=== PATIENT | female | born 1970 | race Caucasian/White ===

== ENCOUNTER 2021-03-09 01:20 | Inpatient (IN) ==
[2021-03-09 01:38] LABS: Basophils % 0.3 % (0.0-0.8); Eosinophils # 0.2 10*3/uL (0.0-0.87); Eosinophils % 1.6 % (0.00-10.9); Hematocrit 42.3 VOL% (35.7-47.0); Hemoglobin 14.6 GM/DL (12.0-16.0); Immature Granulocytes % 0.5 %; Immature Granulocytes Absolute 0.05 #; Lymphocytes # 2.5 10*3/uL (1.4-4.0); Lymphocytes % 22.9 % (21.3-54.2); Mean Corpuscular HGB Conc 34.5 GM/DL (32-36); Mean Corpuscular Volume 88.1 FL (87-102); Mean Platelet Volume 11.2 FL (9.6-12.0); Monocytes % 7.7 % (1.7-12.7); Platelet Count 196 T/CUMM (130-400)
[2021-03-09 01:58] LABS: Albumin 3.9 G/DL (3.4-5.0); Bilirubin,Total 0.5 MG/DL (0.2-1.0); Calcium 8.8 MG/DL (8.5-10.1); Osmolality,Calculated 277.7 MOS/KG (273-304); Potassium 3.5 MMOL/L (3.5-5.1); Total Protein 7.3 G/DL (6.4-8.2)
[2021-03-09] MEDS ORDERED: ASPIRIN 325 MG TABLET PO STA (02:08)
[2021-03-09] MEDS ORDERED: NITROGLYCERIN SL 0.4 MG TABLET SL STA ×2 (02:08→03:32)
[2021-03-09] MEDS ORDERED: ALBUTEROL/IPRATROPIUM 3 ML NEB RESP TX STA (02:18)
[2021-03-09] MEDS ORDERED: ONDANSETRON 4 MG/2 ML VIAL IV ONE (02:18)
[2021-03-09] MEDS ORDERED: ENOXAPARIN 30 MG/0.3 ML SYRINGE SUBCUT STA (02:18)
[2021-03-09] MEDS ORDERED: MORPHINE 4 MG/1 ML VIAL IV STA (02:18)
[2021-03-09] MEDS ORDERED: methylPREDNISolone SOD SUC 125 MG/2 ML VIAL IV STA (02:18)
[2021-03-09] MEDS ORDERED: ENOXAPARIN 100 MG/ML SYRINGE SUBCUT ONE (02:19)
[2021-03-09] MEDS ORDERED: DEXTROSE 50% 25 GM/50 ML VIAL IV PRN (02:24)
[2021-03-09] MEDS ORDERED: GLUCAGON 1 MG VIAL IM PRN (02:24)
[2021-03-09] MEDS ORDERED: ALBUTEROL/IPRATROPIUM 3 ML NEB RESP TX PRN (02:29)
[2021-03-09] MEDS ORDERED: CLORAZEPATE 7.5 MG TABLET PO STA (03:34)
[2021-03-09 06:38] LABS: Risk Ratio 3.56
[2021-03-09] MEDS: NITROGLYCERIN SL 0.4 MG TABLET SL PRN (07:25)
[2021-03-09] MEDS: PANTOPRAZOLE 40 MG TABLET PO SCH (09:04)
[2021-03-09] MEDS: NICOTINE 21 MG/24 HR PATCH TRANSDERM SCH (09:04)
[2021-03-09] MEDS: ASPIRIN CHEW 81 MG TABLET PO SCH (09:06)
[2021-03-09] MEDS ORDERED: DIAZEPAM 5 MG TABLET PO ONE (09:38)
[2021-03-09] MEDS ORDERED: diphenhydrAMINE CAP 50 MG CAPSULE PO ONE (09:38)
[2021-03-09] MEDS ORDERED: HEPARIN/NACL 0.9% 2 UNITS/ML 0 UNIT/0 ML BAG IV ONE (10:25)
[2021-03-09] MEDS ORDERED: LIDOCAINE 1% 20 ML VIAL ONE (10:25)
[2021-03-09] MEDS: SODIUM CHLORIDE 0.45% 1,000 ML IV SCH ×2 (10:28→23:20)
[2021-03-09] MEDS: TICAGRELOR 90 MG TABLET PO SCH ×2 (11:07→21:11)
[2021-03-09] MEDS ORDERED: VERAPAMIL 5 MG/2 ML VIAL ONE (11:26)
[2021-03-09] MEDS ORDERED: NITROGLYCERIN DRIP 50 MG/250 ML BOTTLE IV ONE (11:26)
[2021-03-09] MEDS ORDERED: MIDAZOLAM 2 MG/2 ML VIAL ONE (11:44)
[2021-03-09] MEDS ORDERED: fentaNYL 100 MCG/2 ML VIAL ONE (11:44)
[2021-03-09] MEDS ORDERED: HEPARIN 5,000 UNIT/1 ML VIAL ONE (12:00)
[2021-03-09] MEDS ORDERED: ENOXAPARIN 100 MG/ML SYRINGE SUBCUT SCH (14:00)
[2021-03-09] MEDS: MORPHINE 4 MG/1 ML VIAL IV PRN (14:35)
[2021-03-09] MEDS: ONDANSETRON 4 MG/2 ML VIAL IV PRN ×2 (17:39→21:36)
[2021-03-09] MEDS ORDERED: METOPROLOL TARTRATE 50 MG TABLET PO SCH (21:00)
[2021-03-09] MEDS ORDERED: SIMVASTATIN 40 MG TABLET PO SCH (21:00)
[2021-03-09] MEDS: ROSUVASTATIN 20 MG TABLET PO SCH (21:11)
[2021-03-09] MEDS: CLORAZEPATE 7.5 MG TABLET PO PRN (23:56)
[2021-03-10] MEDS: NITROGLYCERIN SL 0.4 MG TABLET SL PRN (00:10)
[2021-03-10] MEDS: MORPHINE 4 MG/1 ML VIAL IV PRN ×2 (00:45→03:53)
[2021-03-10 05:09] LABS: Basophils % 0.1 % (0.0-0.8); Eosinophils % 0.1 % (0.00-10.9); Hemoglobin 14.4 GM/DL (12.0-16.0); Immature Granulocytes Absolute 0.24 #; Lymphocytes # 2.7 10*3/uL (1.4-4.0); Lymphocytes % 11.1 % (21.3-54.2); Mean Corpuscular HGB Conc 34.3 GM/DL (32-36); Mean Corpuscular Volume 88.8 FL (87-102); Mean Platelet Volume 11.8 FL (9.6-12.0); Monocytes % 8.2 % (1.7-12.7); Neutrophils % 79.5 % (38.7-73.9); Platelet Count 222 T/CUMM (130-400); Red Blood Count 4.73 MC/CUMM (3.8-5.5); Red Cell Distribution Width 13.3 % (9.3-17.3)
[2021-03-10 05:14] LABS: Calcium 9.4 MG/DL (8.5-10.1); Osmolality,Calculated 275.1 MOS/KG (273-304); Potassium 3.8 MMOL/L (3.5-5.1)
[2021-03-10 05:26] LABS: Hypochromasia Slight; Microcytosis 1+; Platelet Estimate Normal
[2021-03-10] MEDS: ONDANSETRON 4 MG/2 ML VIAL IV PRN (06:51)
[2021-03-10] MEDS: KETOROLAC 30 MG/1 ML VIAL IV SCH ×3 (06:56→18:31)
[2021-03-10] MEDS: THIAMINE 200 MG/2 ML VIAL IV SCH (09:34)
[2021-03-10] MEDS: NICOTINE 21 MG/24 HR PATCH TRANSDERM SCH (09:41)
[2021-03-10] MEDS: ASPIRIN CHEW 81 MG TABLET PO SCH (09:44)
[2021-03-10] MEDS: TICAGRELOR 90 MG TABLET PO SCH ×2 (09:44→20:47)
[2021-03-10] MEDS: MULTIVITAMIN (CENTRUM) TABLET PO SCH (09:44)
[2021-03-10] MEDS: PANTOPRAZOLE 40 MG TABLET PO SCH (09:45)
[2021-03-10] MEDS: METOPROLOL TARTRATE 100 MG TABLET PO SCH ×2 (09:45→20:47)
[2021-03-10] MEDS: FOLIC ACID 1 MG TABLET PO SCH (09:47)
[2021-03-10] MEDS: SODIUM CHLORIDE 0.45% 1,000 ML IV SCH (09:48)
[2021-03-10] MEDS: ROSUVASTATIN 20 MG TABLET PO SCH (20:47)
[2021-03-11] MEDS: KETOROLAC 30 MG/1 ML VIAL IV SCH
[2021-03-11] MEDS: CLORAZEPATE 7.5 MG TABLET PO PRN
[2021-03-11 05:05] LABS: Amorphous Crystals,Urine Occasional /HPF (Few); Bacteria,Urine Occasional /HPF (Few); Bilirubin,Urine Negative (Negative); Blood, Urine Negative (Negative); Glucose,Urine (UA) Negative (Negative); Hyaline Casts,Urine 22 /LPF (0-3); Ketones,Urine Negative (Negative); Mucus,Urine Occasional /LPF (Occasional); Nitrite,Urine Negative (Negative); Protein,Urine 30 MG/DL; RBC,Urine 2 /HPF (0-4); Squamous Epithelial Cell,Urine Few /HPF (0-10); Urine Appearance Slightly Hazy (Clear); Urine Color Amber (Yellow); Urine Specific Gravity 1.034 (1.001-1.035)
[2021-03-11 05:10] LABS: Basophils # 0.1 10*3/uL (0.0-0.2); Basophils % 0.2 % (0.0-0.8); Eosinophils % 0.1 % (0.00-10.9); Hematocrit 40.5 VOL% (35.7-47.0); Immature Granulocytes % 1.2 %; Immature Granulocytes Absolute 0.27 #; Lymphocytes % 13.5 % (21.3-54.2); Mean Corpuscular HGB Conc 34.6 GM/DL (32-36); Mean Corpuscular Volume 89.2 FL (87-102); Mean Platelet Volume 11.7 FL (9.6-12.0); Monocytes % 14.3 % (1.7-12.7); Neutrophils % 70.7 % (38.7-73.9); Platelet Count 199 T/CUMM (130-400); Red Blood Count 4.54 MC/CUMM (3.8-5.5); Red Cell Distribution Width 13.4 % (9.3-17.3); White Blood Count 22.5 T/CUMM (4-12)
[2021-03-11 05:34] LABS: Calcium 9.2 MG/DL (8.5-10.1); Lymphocytes 14 % (20-55); Osmolality,Calculated 274.4 MOS/KG (273-304); Platelet Estimate Adequate; Segmented Neutrophils 73 % (50-85); Total Cells Counted 100
[2021-03-11 05:35] LABS: Hypochromasia Slight; Microcytosis Slight
[2021-03-11] MEDS ORDERED: LIDOCAINE 1% 20 ML VIAL ONE (07:02)
[2021-03-11] MEDS: METOPROLOL TARTRATE 100 MG TABLET PO SCH ×3 (07:07→21:28)
[2021-03-11] MEDS: MULTIVITAMIN (CENTRUM) TABLET PO SCH ×2 (07:07→08:37)
[2021-03-11] MEDS: FOLIC ACID 1 MG TABLET PO SCH ×2 (07:07→08:38)
[2021-03-11] MEDS: PANTOPRAZOLE 40 MG TABLET PO SCH ×2 (07:08→08:38)
[2021-03-11] MEDS: TICAGRELOR 90 MG TABLET PO SCH ×3 (07:08→21:27)
[2021-03-11] MEDS: ASPIRIN CHEW 81 MG TABLET PO SCH ×2 (07:09→08:37)
[2021-03-11] MEDS: THIAMINE 200 MG/2 ML VIAL IV SCH ×2 (07:12→08:38)
[2021-03-11] MEDS: SODIUM CHLORIDE 0.9% 1,000 ML IV SCH ×2 (07:40→18:24)
[2021-03-11] MEDS ORDERED: diphenhydrAMINE CAP 50 MG CAPSULE PO ONE (08:00)
[2021-03-11] MEDS ORDERED: diphenhydrAMINE CAP 25 MG CAPSULE PO ONE (08:00)
[2021-03-11] MEDS ORDERED: DIAZEPAM 5 MG TABLET PO ONE ×2 (08:00)
[2021-03-11] MEDS ORDERED: fentaNYL 100 MCG/2 ML VIAL ONE (08:22)
[2021-03-11] MEDS ORDERED: MIDAZOLAM 2 MG/2 ML VIAL ONE (08:22)
[2021-03-11] MEDS ORDERED: ENOXAPARIN 30 MG/0.3 ML SYRINGE ONE (08:35)
[2021-03-11] MEDS ORDERED: TICAGRELOR 90 MG TABLET ONE (09:03)
[2021-03-11] MEDS: LEVOFLOXACIN INJ 750 MG/150 ML PREMIX IV SCH (14:56)
[2021-03-11] MEDS: NICOTINE 14 MG/24 HR PATCH TRANSDERM SCH (14:56)
[2021-03-11] MEDS: NICOTINE 21 MG/24 HR PATCH TRANSDERM SCH (14:57)
[2021-03-11] MEDS: ROSUVASTATIN 20 MG TABLET PO SCH (21:27)
[2021-03-12 04:32] LABS: Basophils % 0.2 % (0.0-0.8); Eosinophils % 0.2 % (0.00-10.9); Hematocrit 33.2 VOL% (35.7-47.0); Hemoglobin 11.1 GM/DL (12.0-16.0); Immature Granulocytes % 0.6 %; Immature Granulocytes Absolute 0.07 #; Lymphocytes # 1.5 10*3/uL (1.4-4.0); Lymphocytes % 13.2 % (21.3-54.2); Mean Corpuscular HGB Conc 33.4 GM/DL (32-36); Mean Corpuscular Volume 91.5 FL (87-102); Mean Platelet Volume 11.9 FL (9.6-12.0); Monocytes % 13.6 % (1.7-12.7); Neutrophils % 72.2 % (38.7-73.9); Platelet Count 151 T/CUMM (130-400); Red Blood Count 3.63 MC/CUMM (3.8-5.5); Red Cell Distribution Width 13.2 % (9.3-17.3); White Blood Count 11.6 T/CUMM (4-12)
[2021-03-12 05:02] LABS: Calcium 8.7 MG/DL (8.5-10.1); Potassium 4.1 MMOL/L (3.5-5.1)
[2021-03-12 05:06] LABS: Blood Urea Nitrogen 22 MG/DL (7-18); Calcium 8.7 MG/DL (8.5-10.1); Carbon Dioxide 27 MMOL/L (21-32); Estimated Glom Filtration Rate 92 ML/MIN; Glucose 96 MG/DL (74-106); Osmolality,Calculated 277.7 MOS/KG (273-304); Potassium 4.1 MMOL/L (3.5-5.1); Sodium 138 MMOL/L (136-145)
[2021-03-12] MEDS: SODIUM CHLORIDE 0.9% 1,000 ML IV SCH ×2 (07:34→07:45)
[2021-03-12] MEDS: THIAMINE 200 MG/2 ML VIAL IV SCH (08:35)
[2021-03-12] MEDS: TICAGRELOR 90 MG TABLET PO SCH ×2 (08:35→20:40)
[2021-03-12] MEDS: ASPIRIN CHEW 81 MG TABLET PO SCH (08:35)
[2021-03-12] MEDS: MULTIVITAMIN (CENTRUM) TABLET PO SCH (08:35)
[2021-03-12] MEDS: FOLIC ACID 1 MG TABLET PO SCH (08:35)
[2021-03-12] MEDS: PANTOPRAZOLE 40 MG TABLET PO SCH (08:35)
[2021-03-12] MEDS: NICOTINE 14 MG/24 HR PATCH TRANSDERM SCH (08:36)
[2021-03-12] MEDS: LEVOFLOXACIN INJ 750 MG/150 ML PREMIX IV SCH (08:42)
[2021-03-12] MEDS ORDERED: AMIODARONE INJ 150 MG in DEXTROSE 5% 100 ML IV ONE (08:46)
[2021-03-12] MEDS: METOPROLOL TARTRATE 100 MG TABLET PO SCH ×2 (08:50→20:40)
[2021-03-12] MEDS ORDERED: AMIODARONE INJ 450 MG in DEXTROSE 5% 241 ML IV SCH ×3 (09:00→15:00)
[2021-03-12] MEDS: RIVAROXABAN 20 MG TABLET PO SCH (11:33)
[2021-03-12] MEDS: ASCORBIC ACID 500 MG TABLET PO SCH ×2 (11:33→20:40)
[2021-03-12] MEDS: AMIODARONE INJ 450 MG in DEXTROSE 5% 241 ML IV SCH (17:00)
[2021-03-12] MEDS: ROSUVASTATIN 20 MG TABLET PO SCH (20:40)
[2021-03-13 05:40] LABS: Basophils % 0.2 % (0.0-0.8); Eosinophils # 0.1 10*3/uL (0.0-0.87); Eosinophils % 1.2 % (0.00-10.9); Hematocrit 33.8 VOL% (35.7-47.0); Hemoglobin 11.4 GM/DL (12.0-16.0); Immature Granulocytes % 0.5 %; Immature Granulocytes Absolute 0.05 #; Lymphocytes # 1.7 10*3/uL (1.4-4.0); Lymphocytes % 17.4 % (21.3-54.2); Mean Corpuscular HGB Conc 33.7 GM/DL (32-36); Mean Corpuscular Volume 91.8 FL (87-102); Mean Platelet Volume 11.6 FL (9.6-12.0); Monocytes % 11.9 % (1.7-12.7); Neutrophils % 68.8 % (38.7-73.9); Platelet Count 166 T/CUMM (130-400); Red Blood Count 3.68 MC/CUMM (3.8-5.5); Red Cell Distribution Width 13.2 % (9.3-17.3); White Blood Count 9.8 T/CUMM (4-12)
[2021-03-13 05:55] LABS: Osmolality,Calculated 280.4 MOS/KG (273-304); Potassium 3.8 MMOL/L (3.5-5.1)
[2021-03-13] MEDS ORDERED: LEVOFLOXACIN INJ 750 MG/150 ML PREMIX IV SCH (09:00)
[2021-03-13] MEDS: THIAMINE 200 MG/2 ML VIAL IV SCH (09:48)
[2021-03-13] MEDS: PANTOPRAZOLE 40 MG TABLET PO SCH (09:49)
[2021-03-13] MEDS: NICOTINE 14 MG/24 HR PATCH TRANSDERM SCH (09:49)
[2021-03-13] MEDS: RIVAROXABAN 20 MG TABLET PO SCH (09:50)
[2021-03-13] MEDS: TICAGRELOR 90 MG TABLET PO SCH ×2 (09:50→20:11)
[2021-03-13] MEDS: METOPROLOL TARTRATE 100 MG TABLET PO SCH ×2 (09:50→20:10)
[2021-03-13] MEDS: FOLIC ACID 1 MG TABLET PO SCH (09:50)
[2021-03-13] MEDS: MULTIVITAMIN (CENTRUM) TABLET PO SCH (09:50)
[2021-03-13] MEDS: ASCORBIC ACID 500 MG TABLET PO SCH ×2 (09:50→20:09)
[2021-03-13] MEDS: ASPIRIN CHEW 81 MG TABLET PO SCH (09:50)
[2021-03-13] MEDS: AZITHROMYCIN INJ 500 MG in SODIUM CHLORIDE 0.9% 250 ML IV SCH (09:52)
[2021-03-13] MEDS ORDERED: ALPRAZolam 0.25 MG TABLET PO PRN (09:53)
[2021-03-13] MEDS ORDERED: FUROSEMIDE 20 MG TABLET PO SCH (10:00)
[2021-03-13] MEDS ORDERED: FUROSEMIDE 20 MG TABLET PO ONE (12:05)
[2021-03-13] MEDS: BUDESONIDE/FORMOTEROL 160-4.5 INHALER 6 GM INH SCH ×2 (12:15→20:12)
[2021-03-13] MEDS: AMIODARONE 200 MG TABLET PO SCH (12:15)
[2021-03-13] MEDS: DILTIAZEM INJ 100 MG in SODIUM CHLORIDE 0.9% 100 ML IV SCH (12:49)
[2021-03-13] MEDS: AMIODARONE INJ 450 MG in DEXTROSE 5% 241 ML IV SCH (12:50)
[2021-03-13] MEDS: ROSUVASTATIN 20 MG TABLET PO SCH (20:10)
[2021-03-14] MEDS: DILTIAZEM INJ 100 MG in SODIUM CHLORIDE 0.9% 100 ML IV SCH ×2 (00:24→11:30)
[2021-03-14 04:53] LABS: Basophils % 0.3 % (0.0-0.8); Eosinophils # 0.2 10*3/uL (0.0-0.87); Eosinophils % 2.4 % (0.00-10.9); Hematocrit 32.7 VOL% (35.7-47.0); Hemoglobin 11.4 GM/DL (12.0-16.0); Immature Granulocytes % 0.6 %; Immature Granulocytes Absolute 0.06 #; Lymphocytes # 1.9 10*3/uL (1.4-4.0); Lymphocytes % 18.9 % (21.3-54.2); Mean Corpuscular HGB Conc 34.9 GM/DL (32-36); Mean Corpuscular Volume 87.7 FL (87-102); Mean Platelet Volume 11.8 FL (9.6-12.0); Monocytes % 11.9 % (1.7-12.7); Neutrophils % 65.9 % (38.7-73.9); Platelet Count 194 T/CUMM (130-400); Red Blood Count 3.73 MC/CUMM (3.8-5.5); Red Cell Distribution Width 13.1 % (9.3-17.3); White Blood Count 10.1 T/CUMM (4-12)
[2021-03-14 05:03] LABS: Calcium 8.5 MG/DL (8.5-10.1); Osmolality,Calculated 280.3 MOS/KG (273-304); Potassium 3.1 MMOL/L (3.5-5.1)
[2021-03-14] MEDS ORDERED: POTASSIUM CHLORIDE 20 MEQ TABLET PO ONE (07:43)
[2021-03-14] MEDS: NICOTINE 14 MG/24 HR PATCH TRANSDERM SCH (10:11)
[2021-03-14] MEDS: TICAGRELOR 90 MG TABLET PO SCH ×2 (11:09→21:53)
[2021-03-14] MEDS: ASCORBIC ACID 500 MG TABLET PO SCH ×2 (11:09→21:53)
[2021-03-14] MEDS: RIVAROXABAN 20 MG TABLET PO SCH (11:10)
[2021-03-14] MEDS: AMIODARONE 200 MG TABLET PO SCH (11:10)
[2021-03-14] MEDS: ASPIRIN CHEW 81 MG TABLET PO SCH (11:10)
[2021-03-14] MEDS: METOPROLOL TARTRATE 100 MG TABLET PO SCH ×2 (11:10→21:53)
[2021-03-14] MEDS: FOLIC ACID 1 MG TABLET PO SCH (11:10)
[2021-03-14] MEDS: MULTIVITAMIN (CENTRUM) TABLET PO SCH (11:10)
[2021-03-14] MEDS: PANTOPRAZOLE 40 MG TABLET PO SCH (11:11)
[2021-03-14] MEDS: THIAMINE 200 MG/2 ML VIAL IV SCH (11:12)
[2021-03-14] MEDS: BUDESONIDE/FORMOTEROL 160-4.5 INHALER 6 GM INH SCH ×2 (11:13→21:00)
[2021-03-14] MEDS: AZITHROMYCIN INJ 500 MG in SODIUM CHLORIDE 0.9% 250 ML IV SCH (11:15)
[2021-03-14] MEDS: ROSUVASTATIN 20 MG TABLET PO SCH (21:53)
[2021-03-15 05:25] LABS: Basophils % 0.4 % (0.0-0.8); Eosinophils # 0.4 10*3/uL (0.0-0.87); Eosinophils % 3.8 % (0.00-10.9); Hematocrit 34.9 VOL% (35.7-47.0); Hemoglobin 11.8 GM/DL (12.0-16.0); Immature Granulocytes % 0.7 %; Immature Granulocytes Absolute 0.07 #; Lymphocytes # 1.9 10*3/uL (1.4-4.0); Lymphocytes % 18.2 % (21.3-54.2); Mean Corpuscular HGB Conc 33.8 GM/DL (32-36); Mean Corpuscular Volume 91.4 FL (87-102); Mean Platelet Volume 11.1 FL (9.6-12.0); Monocytes % 11.5 % (1.7-12.7); Neutrophils % 65.4 % (38.7-73.9); Platelet Count 212 T/CUMM (130-400); Red Blood Count 3.82 MC/CUMM (3.8-5.5); Red Cell Distribution Width 13.5 % (9.3-17.3); White Blood Count 10.2 T/CUMM (4-12)
[2021-03-15 05:46] LABS: Calcium 8.6 MG/DL (8.5-10.1); Osmolality,Calculated 278.4 MOS/KG (273-304); Potassium 3.3 MMOL/L (3.5-5.1)
[2021-03-15] MEDS ORDERED: POTASSIUM CHLORIDE 20 MEQ TABLET PO SCH (09:00)
[2021-03-15] MEDS ORDERED: DILTIAZEM CD 120 MG CAPSULE PO SCH (09:00)
[2021-03-15] MEDS ORDERED: AMIODARONE 200 MG TABLET PO SCH (09:00)
[2021-03-15] MEDS: METOPROLOL TARTRATE 100 MG TABLET PO SCH (09:04)
[2021-03-15] MEDS: MULTIVITAMIN (CENTRUM) TABLET PO SCH (09:04)
[2021-03-15] MEDS: ASPIRIN CHEW 81 MG TABLET PO SCH (09:04)
[2021-03-15] MEDS: RIVAROXABAN 20 MG TABLET PO SCH (09:04)
[2021-03-15] MEDS: ASCORBIC ACID 500 MG TABLET PO SCH (09:04)
[2021-03-15] MEDS: TICAGRELOR 90 MG TABLET PO SCH (09:04)
[2021-03-15] MEDS: FOLIC ACID 1 MG TABLET PO SCH (09:04)
[2021-03-15] MEDS: PANTOPRAZOLE 40 MG TABLET PO SCH (09:04)
[2021-03-15] MEDS: BUDESONIDE/FORMOTEROL 160-4.5 INHALER 6 GM INH SCH (09:05)
[2021-03-15] MEDS: THIAMINE 200 MG/2 ML VIAL IV SCH (09:05)
[2021-03-15] MEDS: NICOTINE 14 MG/24 HR PATCH TRANSDERM SCH (09:05)
[2021-03-15] MEDS: AZITHROMYCIN INJ 500 MG in SODIUM CHLORIDE 0.9% 250 ML IV SCH (09:06)
[2021-03-15] MEDS: DILTIAZEM INJ 100 MG in SODIUM CHLORIDE 0.9% 100 ML IV SCH (11:36)
[2021-03-15 11:52] VITALS: BP 118/79
== END 2021-03-15 15:16 | disposition home or self-care (01) | DRG 247 ==
LOC: N.EDINP 01:20 → N.ED 01:20 → N.EDINP 04:05 → N.TELEN 04:47 → SUATTDRO 03-10 09:34
PROVIDERS: ADMIT Internal Medicine; ATTEND Internal Medicine Geriatric Medicine
PROC: CLCCHCL (ICD-10-PCS; 2021-03-09 12:15)

== ENCOUNTER 2021-07-14 08:04 | Inpatient (IN) ==
[2021-07-14 09:00] LABS: Basophils % 0.1 % (0.0-0.8); Eosinophils # 0.1 10*3/uL (0.0-0.87); Eosinophils % 0.8 % (0.00-10.9); Hematocrit 41.2 VOL% (35.7-47.0); Hemoglobin 13.6 GM/DL (12.0-16.0); Immature Granulocytes % 0.7 %; Immature Granulocytes Absolute 0.08 #; Lymphocytes % 9.2 % (21.3-54.2); Mean Corpuscular Volume 88.2 FL (87-102); Mean Platelet Volume 11.3 FL (9.6-12.0); Monocytes % 4.7 % (1.7-12.7); Neutrophils % 84.5 % (38.7-73.9); Platelet Count 206 T/CUMM (130-400); Red Blood Count 4.67 MC/CUMM (3.8-5.5); White Blood Count 11.3 T/CUMM (4-12)
[2021-07-14 09:13] LABS: PT Patient Result 11.1 SECS (10.5-12.0); Partial Thromboplastin Time 21.9 SECS (23.8-32.1)
[2021-07-14] MEDS ORDERED: LEVOFLOXACIN INJ 750 MG/150 ML PREMIX IV STA (09:19)
[2021-07-14 09:39] LABS: ABG Base Excess 4.3 MMOL/L (-2.5-2.5); ABG HCO3 28.3 MMOL/L (20-26); ABG PCO2 53.4 MM HG (35-48); ABG PH 7.372 (7.35-7.45); ABG TCO2 27.3 MMOL/L (23-27)
[2021-07-14 09:47] LABS: Albumin 3.6 G/DL (3.4-5.0); Bilirubin,Total 0.5 MG/DL (0.20-1.00); Calcium 8.8 MG/DL (8.5-10.1); Osmolality,Calculated 285.1 MOS/KG (273-304); Total Protein 7.1 G/DL (6.4-8.2)
[2021-07-14] MEDS ORDERED: POTASSIUM CHLORIDE 20 MEQ TABLET PO STA (10:15)
[2021-07-14] MEDS ORDERED: DEXTROSE 50% 25 GM/50 ML VIAL IV PRN (11:08)
[2021-07-14] MEDS ORDERED: ONDANSETRON 4 MG/2 ML VIAL IV PRN (11:08)
[2021-07-14] MEDS ORDERED: GLUCAGON 1 MG VIAL IM PRN (11:08)
[2021-07-14] MEDS ORDERED: hydrALAZINE 20 MG/1 ML VIAL IV PRN (11:08)
[2021-07-14] MEDS ORDERED: ACETAMINOPHEN 325 MG TABLET PO PRN (11:08)
[2021-07-14] MEDS ORDERED: FUROSEMIDE 40 MG/4 ML VIAL IV STA (11:10)
[2021-07-14] MEDS ORDERED: ENOXAPARIN 40 MG/0.4 ML SYRINGE SUBCUT SCH (11:30)
[2021-07-14 13:12] LABS: Bacteria,Urine Occasional /HPF (Few); Bilirubin,Urine Negative (Negative); Blood, Urine Negative (Negative); Glucose,Urine (UA) Negative (Negative); Ketones,Urine Negative (Negative); Nitrite,Urine Negative (Negative); Protein,Urine Negative; RBC,Urine <1 /HPF (0-4); Squamous Epithelial Cell,Urine Occasional /HPF (0-10); Urine Appearance CLEAR (Clear); Urine Color Colorless (Yellow); Urine Specific Gravity 1.004 (1.001-1.035); Urine Urobilinogen < 2.0 EU/DL (0.2-1.0)
[2021-07-14 13:21] LABS: Barbiturates Screen,Urine Negative (Negative); Benzodiazepines Screen,Urine Negative (Negative); Cannabinoid Screen,Urine Positive (Negative); Opiate Screen,Urine Negative (Negative); Phencyclidine Screen,Urine Negative (Negative)
[2021-07-14] MEDS: ALBUTEROL 2.5 MG/3 ML NEB RESP TX SCH ×2 (15:21→19:45)
[2021-07-14] MEDS: FUROSEMIDE 40 MG/4 ML VIAL IV SCH (16:00)
[2021-07-14] MEDS ORDERED: ATORVASTATIN 10 MG TABLET PO SCH (21:00)
[2021-07-14] MEDS: METOPROLOL TARTRATE 50 MG TABLET PO SCH (21:56)
[2021-07-14] MEDS: TICAGRELOR 90 MG TABLET PO SCH (21:56)
[2021-07-14] MEDS: AMIODARONE 200 MG TABLET PO SCH ×2 (21:56→21:59)
[2021-07-14] MEDS: BUDESONIDE/FORMOTEROL 160-4.5 INHALER 6 GM INH SCH (21:56)
[2021-07-15] MEDS: ALBUTEROL 2.5 MG/3 ML NEB RESP TX SCH ×2 (00:46→07:38)
[2021-07-15 05:44] LABS: Basophils % 0.3 % (0.0-0.8); Eosinophils # 0.1 10*3/uL (0.0-0.87); Eosinophils % 1.7 % (0.00-10.9); Hematocrit 35.5 VOL% (35.7-47.0); Immature Granulocytes % 0.3 %; Immature Granulocytes Absolute 0.02 #; Lymphocytes # 1.8 10*3/uL (1.4-4.0); Lymphocytes % 26.1 % (21.3-54.2); Mean Corpuscular HGB Conc 33.8 GM/DL (32-36); Mean Corpuscular Volume 86.8 FL (87-102); Mean Platelet Volume 11.4 FL (9.6-12.0); Monocytes % 9.2 % (1.7-12.7); Neutrophils % 62.4 % (38.7-73.9); Platelet Count 199 T/CUMM (130-400); Red Blood Count 4.09 MC/CUMM (3.8-5.5); Red Cell Distribution Width 13.8 % (9.3-17.3); White Blood Count 6.9 T/CUMM (4-12)
[2021-07-15 06:02] LABS: Calcium 9.2 MG/DL (8.5-10.1); Osmolality,Calculated 280.3 MOS/KG (273-304); Potassium 2.6 MMOL/L (3.5-5.1); Risk Ratio 4.54
[2021-07-15] MEDS ORDERED: POTASSIUM CHLORIDE 20 MEQ TABLET PO PRN (06:24)
[2021-07-15] MEDS ORDERED: RIVAROXABAN 20 MG TABLET PO SCH (08:00)
[2021-07-15] MEDS ORDERED: POTASSIUM CHLORIDE 20 MEQ TABLET PO ONE ×2 (08:29→13:33)
[2021-07-15] MEDS ORDERED: ASPIRIN EC 81 MG TABLET PO SCH (09:00)
[2021-07-15] MEDS: METOPROLOL TARTRATE 50 MG TABLET PO SCH (09:06)
[2021-07-15] MEDS: TICAGRELOR 90 MG TABLET PO SCH (09:07)
[2021-07-15] MEDS: FUROSEMIDE 40 MG/4 ML VIAL IV SCH (09:07)
[2021-07-15] MEDS: BUDESONIDE/FORMOTEROL 160-4.5 INHALER 6 GM INH SCH (09:08)
[2021-07-15] MEDS: AMIODARONE 200 MG TABLET PO SCH (10:14)
[2021-07-15 11:54] VITALS: BP 114/61
== END 2021-07-15 14:55 | disposition home or self-care (01) | DRG 291 ==
LOC: EDUNIT# → EDBD → N.ED 08:04 → N.EDINP 10:38 → SUATTDRO 10:38 → N.2W 14:53
PROVIDERS: ADMIT Internal Medicine; ATTEND Internal Medicine

== ENCOUNTER 2021-07-29 05:26 | Inpatient (IN) ==
[2021-07-29] MEDS ORDERED: ONDANSETRON 4 MG/2 ML VIAL ONE (05:35)
[2021-07-29] MEDS ORDERED: MORPHINE 2 MG/1 ML SYRINGE ONE (05:35)
[2021-07-29] MEDS ORDERED: NITROGLYCERIN 2% OINT 1 INCH/GM PACK TOP STA (05:36)
[2021-07-29] MEDS ORDERED: MORPHINE 2 MG/1 ML SYRINGE IV STA (05:36)
[2021-07-29] MEDS ORDERED: methylPREDNISolone SOD SUC 125 MG/2 ML VIAL IV STA (05:36)
[2021-07-29] MEDS ORDERED: ONDANSETRON 4 MG/2 ML VIAL IV STA (05:36)
[2021-07-29] MEDS ORDERED: ASPIRIN 325 MG TABLET PO STA (05:36)
[2021-07-29] MEDS ORDERED: FUROSEMIDE 100 MG/10 ML VIAL IV STA (05:36)
[2021-07-29] MEDS ORDERED: FUROSEMIDE 40 MG/4 ML VIAL ONE (05:36)
[2021-07-29 05:56] LABS: Basophils % 0.3 % (0.0-0.8); Eosinophils # 0.2 10*3/uL (0.0-0.87); Eosinophils % 2.2 % (0.00-10.9); Hematocrit 46.8 VOL% (35.7-47.0); Hemoglobin 15.4 GM/DL (12.0-16.0); Immature Granulocytes % 0.5 %; Immature Granulocytes Absolute 0.05 #; Lymphocytes # 2.3 10*3/uL (1.4-4.0); Lymphocytes % 22.3 % (21.3-54.2); Mean Corpuscular HGB Conc 32.9 GM/DL (32-36); Mean Corpuscular Volume 87.5 FL (87-102); Mean Platelet Volume 11.7 FL (9.6-12.0); Monocytes % 4.2 % (1.7-12.7); Neutrophils % 70.5 % (38.7-73.9); Platelet Count 261 T/CUMM (130-400); Red Blood Count 5.35 MC/CUMM (3.8-5.5); Red Cell Distribution Width 14.2 % (9.3-17.3); White Blood Count 10.5 T/CUMM (4-12)
[2021-07-29] MEDS ORDERED: ALBUTEROL NEB SOLN 5 MG/ML 20 ML/BOTTLE CONT NEB SCH (06:00)
[2021-07-29 06:03] LABS: PT Patient Result 11.1 SECS (10.5-12.0)
[2021-07-29] MEDS ORDERED: LEVOFLOXACIN INJ 750 MG/150 ML PREMIX IV STA (06:03)
[2021-07-29 06:08] LABS: ABG Base Excess 2.8 MMOL/L (-2.5-2.5); ABG HCO3 26.9 MMOL/L (20-26); ABG Oxygen Saturation 97.5 % (95-100); ABG PCO2 56.1 MM HG (35-48); ABG PH 7.341 (7.35-7.45); ABG TCO2 26.1 MMOL/L (23-27)
[2021-07-29 06:19] LABS: Bilirubin,Urine Negative (Negative); Blood, Urine Negative (Negative); Glucose,Urine (UA) >=500 mg/dL (Negative); Ketones,Urine Negative (Negative); Nitrite,Urine Negative (Negative); Protein,Urine 100 MG/DL; RBC,Urine 2 /HPF (0-4); Squamous Epithelial Cell,Urine Occasional /HPF (0-10); Urine Appearance CLEAR (Clear); Urine Color Straw (Yellow); Urine Specific Gravity 1.005 (1.001-1.035); Urine Urobilinogen < 2.0 EU/DL (0.2-1.0)
[2021-07-29 06:36] LABS: Barbiturates Screen,Urine Negative (Negative); Benzodiazepines Screen,Urine Negative (Negative); Cannabinoid Screen,Urine Positive (Negative); Opiate Screen,Urine Positive (Negative); Phencyclidine Screen,Urine Negative (Negative)
[2021-07-29 06:46] LABS: Albumin 4.3 G/DL (3.4-5.0); Bilirubin,Total 0.8 MG/DL (0.20-1.00); Osmolality,Calculated 291.5 MOS/KG (273-304); Total Protein 7.9 G/DL (6.4-8.2)
[2021-07-29 07:13] LABS: Lymphocytes 17 % (20-55); Platelet Estimate Adequate; Segmented Neutrophils 80 % (50-85); Total Cells Counted 100
[2021-07-29] MEDS: POTASSIUM CHLORIDE RIDER 10 MEQ/100 ML PREMIX IV SCH ×2 (07:30→12:44)
[2021-07-29] MEDS ORDERED: ONDANSETRON 4 MG/2 ML VIAL IV PRN (07:35)
[2021-07-29] MEDS ORDERED: ACETAMINOPHEN 325 MG TABLET PO PRN (07:35)
[2021-07-29] MEDS ORDERED: GLUCAGON 1 MG VIAL IM PRN (07:35)
[2021-07-29] MEDS ORDERED: DOCUSATE SODIUM 100 MG CAPSULE PO PRN (07:35)
[2021-07-29] MEDS ORDERED: DEXTROSE 50% 25 GM/50 ML VIAL IV PRN (07:35)
[2021-07-29 09:07] LABS: Risk Ratio 3.98; Thyroid Stimulating Hormone 6.15 uIU/ml (0.358-3.74)
[2021-07-29] MEDS ORDERED: ENOXAPARIN 40 MG/0.4 ML SYRINGE SUBCUT SCH (10:00)
[2021-07-29] MEDS: ASPIRIN EC 81 MG TABLET PO SCH (10:36)
[2021-07-29] MEDS: ASCORBIC ACID 500 MG TABLET PO SCH (10:36)
[2021-07-29] MEDS: CHOLECALCIFEROL 400 UNIT TABLET PO SCH (10:36)
[2021-07-29] MEDS: CLOPIDOGREL 75 MG TABLET PO SCH (10:37)
[2021-07-29] MEDS: PANTOPRAZOLE 40 MG TABLET PO SCH (10:37)
[2021-07-29] MEDS: BUDESONIDE/FORMOTEROL 160-4.5 INHALER 6 GM INH SCH ×2 (11:35→21:16)
[2021-07-29] MEDS: cefTRIAXone 1,000 MG in SODIUM CHLORIDE 0.9% 100 ML IV SCH (18:45)
[2021-07-29] MEDS: AZITHROMYCIN INJ 500 MG in SODIUM CHLORIDE 0.9% 250 ML IV SCH (19:16)
[2021-07-29] MEDS: ALBUTEROL/IPRATROPIUM 3 ML NEB RESP TX SCH (19:36)
[2021-07-29] MEDS ORDERED: AMIODARONE 200 MG TABLET PO SCH (21:00)
[2021-07-29] MEDS: POTASSIUM CHLORIDE 20 MEQ TABLET PO SCH (21:14)
[2021-07-29] MEDS: ATORVASTATIN 10 MG TABLET PO SCH (21:14)
[2021-07-29] MEDS: METOPROLOL TARTRATE 50 MG TABLET PO SCH (21:15)
[2021-07-29] MEDS: TEMAZEPAM 15 MG CAPSULE PO PRN (22:36)
[2021-07-30 01:01] LABS: Basophils % 0.1 % (0.0-0.8); Hematocrit 34.9 VOL% (35.7-47.0); Immature Granulocytes % 0.7 %; Immature Granulocytes Absolute 0.08 #; Lymphocytes % 8.6 % (21.3-54.2); Mean Corpuscular HGB Conc 33.5 GM/DL (32-36); Mean Corpuscular Volume 86.6 FL (87-102); Mean Platelet Volume 11.6 FL (9.6-12.0); Monocytes % 5.8 % (1.7-12.7); Neutrophils % 84.8 % (38.7-73.9); Red Cell Distribution Width 13.9 % (9.3-17.3)
[2021-07-30 01:04] LABS: Hemoglobin 11.7 GM/DL (12.0-16.0); Red Blood Count 4.03 MC/CUMM (3.8-5.5)
[2021-07-30 01:05] LABS: Platelet Count 190 T/CUMM (130-400)
[2021-07-30] MEDS: ALBUTEROL/IPRATROPIUM 3 ML NEB RESP TX SCH ×5 (01:08→20:22)
[2021-07-30 01:22] LABS: Osmolality,Calculated 274.8 MOS/KG (273-304); Potassium 3.2 MMOL/L (3.5-5.1)
[2021-07-30] MEDS ORDERED: LEVOFLOXACIN INJ 750 MG/150 ML PREMIX IV SCH (06:00)
[2021-07-30] MEDS ORDERED: RIVAROXABAN 20 MG TABLET PO SCH (08:00)
[2021-07-30] MEDS: POTASSIUM CHLORIDE 20 MEQ TABLET PO PRN ×4 (08:49→16:38)
[2021-07-30] MEDS: CLOPIDOGREL 75 MG TABLET PO SCH (08:49)
[2021-07-30] MEDS: METOPROLOL TARTRATE 50 MG TABLET PO SCH ×2 (08:49→20:49)
[2021-07-30] MEDS: POTASSIUM CHLORIDE 20 MEQ TABLET PO SCH ×2 (08:49→20:48)
[2021-07-30] MEDS: CHOLECALCIFEROL 400 UNIT TABLET PO SCH (08:49)
[2021-07-30] MEDS: ASPIRIN EC 81 MG TABLET PO SCH (08:49)
[2021-07-30] MEDS: ASCORBIC ACID 500 MG TABLET PO SCH (08:49)
[2021-07-30] MEDS: PANTOPRAZOLE 40 MG TABLET PO SCH (08:49)
[2021-07-30] MEDS: FUROSEMIDE 40 MG/4 ML VIAL IV SCH ×2 (08:50→15:15)
[2021-07-30] MEDS: BUDESONIDE/FORMOTEROL 160-4.5 INHALER 6 GM INH SCH ×2 (08:50→20:50)
[2021-07-30] MEDS: cefTRIAXone 1,000 MG in SODIUM CHLORIDE 0.9% 100 ML IV SCH (14:49)
[2021-07-30] MEDS: AZITHROMYCIN INJ 500 MG in SODIUM CHLORIDE 0.9% 250 ML IV SCH (16:15)
[2021-07-30] MEDS: ATORVASTATIN 10 MG TABLET PO SCH (20:49)
[2021-07-30] MEDS: TEMAZEPAM 15 MG CAPSULE PO PRN (20:49)
[2021-07-30] MEDS ORDERED: FUROSEMIDE 40 MG/4 ML VIAL IV ONE (22:43)
[2021-07-30] MEDS ORDERED: ALBUTEROL/IPRATROPIUM 3 ML NEB RESP TX STA (22:44)
[2021-07-31] MEDS: ALBUTEROL/IPRATROPIUM 3 ML NEB RESP TX SCH ×3 (00:49→13:25)
[2021-07-31 05:27] LABS: Basophils % 0.3 % (0.0-0.8); Eosinophils % 0.2 % (0.00-10.9); Hematocrit 36.4 VOL% (35.7-47.0); Hemoglobin 11.9 GM/DL (12.0-16.0); Immature Granulocytes % 0.3 %; Immature Granulocytes Absolute 0.03 #; Lymphocytes # 1.8 10*3/uL (1.4-4.0); Lymphocytes % 17.5 % (21.3-54.2); Mean Corpuscular HGB Conc 32.7 GM/DL (32-36); Mean Corpuscular Volume 88.6 FL (87-102); Mean Platelet Volume 12.2 FL (9.6-12.0); Monocytes % 8.8 % (1.7-12.7); Neutrophils % 72.9 % (38.7-73.9); Platelet Count 182 T/CUMM (130-400); Red Blood Count 4.11 MC/CUMM (3.8-5.5); Red Cell Distribution Width 14.1 % (9.3-17.3); White Blood Count 10.4 T/CUMM (4-12)
[2021-07-31 05:44] LABS: Osmolality,Calculated 275.8 MOS/KG (273-304); Potassium 3.5 MMOL/L (3.5-5.1)
[2021-07-31] MEDS ORDERED: POTASSIUM CHLORIDE 20 MEQ TABLET PO ONE (07:49)
[2021-07-31] MEDS: PANTOPRAZOLE 40 MG TABLET PO SCH (09:31)
[2021-07-31] MEDS: FUROSEMIDE 40 MG/4 ML VIAL IV SCH (09:31)
[2021-07-31] MEDS: BUDESONIDE/FORMOTEROL 160-4.5 INHALER 6 GM INH SCH (09:32)
[2021-07-31] MEDS: CHOLECALCIFEROL 400 UNIT TABLET PO SCH (09:32)
[2021-07-31] MEDS: POTASSIUM CHLORIDE 20 MEQ TABLET PO PRN (09:32)
[2021-07-31] MEDS: POTASSIUM CHLORIDE 20 MEQ TABLET PO SCH (09:32)
[2021-07-31] MEDS: METOPROLOL TARTRATE 50 MG TABLET PO SCH (09:32)
[2021-07-31] MEDS: ASCORBIC ACID 500 MG TABLET PO SCH (09:32)
[2021-07-31] MEDS: CLOPIDOGREL 75 MG TABLET PO SCH (09:32)
[2021-07-31] MEDS: ASPIRIN EC 81 MG TABLET PO SCH (09:32)
[2021-07-31] MEDS ORDERED: FUROSEMIDE 40 MG TABLET PO ONE (10:49)
[2021-07-31 12:29] VITALS: BP 88/59
== END 2021-07-31 14:55 | disposition home or self-care (01) | DRG 291 ==
LOC: EDUNIT# → EDBD → N.ED 05:26 → SUATTDRO 07:31 → N.EDINP 07:31 → N.2W 09:50
PROVIDERS: ADMIT Internal Medicine; ATTEND Emergency Medicine